=== PATIENT | female | born 1950 | race Caucasian/White ===

== ENCOUNTER 2018-11-17 16:12 | Emergency (ER) | payer MEDICARE ==
[~2018-11-17] VITALS: Ht 162.6 cm; Wt 55.3 kg
[~2018-11-17 16:12] MED LIST: PRED5 PO
[2018-11-17 16:49] LABS: Source, Urine Clean Catch
[2018-11-17 16:50] LABS: BASOPHILS ABSOLUTE AUTO 0.07 K/mm3 (0.00-0.23); BASOPHILS PERCENT AUTO 1 % (0-2); EOSINOPHILS ABSOLUTE AUTO 0.05 K/mm3 (0.00-0.68); EOSINOPHILS PERCENT AUTO 1 % (0-6); Hematocrit 42.6 % (33.0-51.0); Hemoglobin 13.9 g/dL (11.5-16.0); IMMATURE GRAN ABSOLUTE AUTO 0.03 K/mm3 (0.00-0.10); IMMATURE GRAN PERCENT AUTO 0 % (0-1); LYMPHOCYTES ABSOLUTE AUTO 0.45 K/mm3 (0.84-5.20); LYMPHOCYTES PERCENT AUTO 4 % (21-46); MONOCYTES ABSOLUTE AUTO 0.67 K/mm3 (0.16-1.47); MONOCYTES PERCENT AUTO 7 % (4-13); Mean Corpuscular HGB 30.8 pg (26.0-34.0); Mean Corpuscular HGB Conc 32.6 g/dL (31.5-36.5); Mean Corpuscular Volume 94 fL (80-100); Mean Platelet Volume 10.1 fL (9.1-12.4); NEUTROPHILS ABSOLUTE AUTO 9.09 K/mm3 (1.96-9.15); NEUTROPHILS PERCENT AUTO 88 % (41-73); Platelet Count 404 K/mm3 (150-400); RDW Coefficient Variation 11.9 % (11.7-14.2); RDW Standard Deviation 41.1 fL (35.1-46.3); Red Blood Cell Count 4.52 M/mm3 (3.80-5.20); White Blood Cell Count 10.36 K/mm3 (4.00-11.30)
[2018-11-17 16:53] LABS: Appearance, Urine Clear (Clear); Bilirubin, Urine Neg (Neg); Blood, Urine 2+ (Neg); Color, Urine Yellow (P-Yellow); Glucose Qualitative, Urine Neg (Neg); Ketones, Urine 1+ (Neg); Leukocyte Esterase, Urine 1+ (Neg); Nitrite, Urine Neg (Neg); Protein, Urine 2+ (Neg); Urobilinogen, Urine NORM (Normal)
[2018-11-17 17:11] LABS: Alanine Aminotransfer (ALT/SGP 26 U/L (12-78); Albumin, Blood 3.8 g/dL (3.4-5.0); Albumin/Globulin Ratio 1.1 (0.8-1.8); Alk Phos 65 U/L (50-136); Anion Gap 7 mmol/L (6-16); Aspartate Aminotrans (AST/SGOT 22 U/L (12-37); Bilirubin, Total 0.3 mg/dL (0.1-1.0); Blood Urea Nitrogen 8 mg/dL (8-24); Bun/Creatinine Ratio 12.4 (12.0-20.0); CO2, Blood 25 mmol/L (21-32); Calcium, Blood 8.9 mg/dL (8.5-10.1); Chloride, Blood 104 mmol/L (98-108); Creatinine, Blood 0.64 mg/dL (0.40-1.00); Globulin, Blood 3.5 g/dL (2.2-4.0); Glomerular Filtration Rate >60 (60-); Glucose, Blood 113 mg/dL (70-99); Potassium, Blood 3.5 mmol/L (3.5-5.5); Sodium, Blood 136 mmol/L (136-145); Total Protein, Blood 7.3 g/dL (6.4-8.2)
[2018-11-17 17:26] LABS: Bacteria Few /hpf; Squamous Epithelial Cells Mod /hpf (Few); Transitional Epithelial Cells Few /hpf (0-Rare); White Blood Cells, Urine 0-2 /hpf (0-5)
[2018-11-17 17:50] LABS: Influenza A Negative (NEGATIVE); Influenza B Negative (NEGATIVE)
[2018-11-17] MEDS ORDERED: Estrace Vagin42.5 GM PV (18:56)
[2018-11-17] MEDS ORDERED: CIPR500 PO (18:57)
[2018-11-17] MEDS ORDERED: METR500 PO (18:57)
[2018-11-17] MEDS ORDERED: ONDA4ODT MM (21:09)
== END 2018-11-17 22:21 | disposition home or self-care (01) ==
LOC: ER 16:12
PROVIDERS: Emergency Medicine; Physician Assistant
DX: R53.81 Other malaise (principal); R53.1 Weakness; R05 Cough; Z79.52 Long term (current) use of systemic steroids; Z79.899 Other long term (current) drug therapy; Z87.891 Personal history of nicotine dependence
CPT/HCPCS: 36415; 71046; 80053; 81001; 83690; 84484; 85025; 87086; 87804; 93005; 93010; 96361; 96374; 99284-25; J2405; J7030

== ENCOUNTER → 2020-03-27 | Outpatient (CLI) | payer MEDICARE ==
[~2020-03-27] MED LIST changes: +CIPR500 PO; +Estrace Vagin42.5 GM PV; +METR500 PO; +ONDA4ODT MM
== END | disposition home or self-care (01) ==
LOC: PLD 10:38 → LAB SHORT 10:38
DX: D22.71 Melanocytic nevi of right lower limb, including hip (principal)
CPT/HCPCS: 88305

== ENCOUNTER → 2020-04-05 | Outpatient (CLI) | payer MEDICARE | END | disposition home or self-care (01) | LOC: LAB SHORT 13:55 → PLD 13:55 | DX: D22.71 Melanocytic nevi of right lower limb, including hip (principal) | CPT/HCPCS: 88305 ==

== ENCOUNTER → 2023-06-20 | Outpatient (CLI) | payer MEDICARE | END | disposition home or self-care (01) | LOC: LAB 13:57 → LAB SHORT 13:57 | DX: R00.0 Tachycardia, unspecified (principal) | CPT/HCPCS: 84443 ==

== ENCOUNTER → 2023-12-11 | Outpatient (CLI) | payer MEDICARE ==
[2023-12-11 15:55] LABS: Bacterial Vaginosis PCR Positive (NEGATIVE); Candida Group, PCR NOT DETECTED (NOT DETECT); Candida glabrata-krusei, PCR NOT DETECTED (NOT DETECT)
== END ==
LOC: LAB SHORT 08:55 → LAB 08:55
PROVIDERS: Internal Medicine
DX: N89.8 Other specified noninflammatory disorders of vagina (principal)
CPT/HCPCS: 87481; 87661; 87801

== ENCOUNTER → 2024-11-19 | Outpatient (CLI) | payer MEDICARE ==
[2024-11-19 16:29] LABS: Bacterial Vaginosis PCR Negative (NEGATIVE); Candida Group, PCR NOT DETECTED (NOT DETECT); Candida glabrata-krusei, PCR NOT DETECTED (NOT DETECT)
== END ==
LOC: LAB SHORT 12:33 → LAB 12:33
PROVIDERS: Internal Medicine
DX: R30.0 Dysuria (principal)
CPT/HCPCS: 81515; 87077; 87086; 87186

== ENCOUNTER → 2024-12-07 | Outpatient (CLI) | payer MEDICARE | LOC: LAB 13:32 → LAB SHORT 13:32 | DX: R30.0 Dysuria (principal) | CPT/HCPCS: 87077; 87086; 87186 ==